=== PATIENT | male | born 1995 | race Caucasian/White ===

== ENCOUNTER 2016-07-15 11:20 | Emergency (ER) | payer OTHER ==
[2016-07-15] MEDS ORDERED: Ondansetron ODT TAB* 4 MG PO ONE (12:58)
--- NOTE | 2016-07-15 13:03 | UC ---
UC General HPI - HPI Summary HPI Summary: nausea, body aches, chills, fever, sore throat, wheezing and SOB on exertion. hx of asthma, takes albuterol as needed. - History of Current Complaint Chief Complaint: UCRespiratory Stated Complaint: FLU SXS Time Seen by Provider: 07/15/16 12:53 Hx Obtained From: Patient Onset/Duration: Sudden Onset, Lasting Days Timing: Constant Onset Severity: Moderate Current Severity: Moderate Pain Intensity: 6 Associated Signs & Symptoms: Positive: Cough, Dizziness, Fever, Headache, Nausea , SOB, Wheezing - Allergy/Home Medications Allergies/Adverse Reactions: Allergies Allergy/AdvReac Type Severity Reaction Status Date / Time Bee Venom Allergy Anaphylatic Verified 07/15/16 12:45 Shock Latex Allergy Rash Verified 07/15/16 12:45 Home Medications: Home Medications Albuterol HFA INHALER* [Ventolin HFA Inhaler*] 1 - 2 puff INH Q4H PRN 07/15/16 [ History Confirmed 07/15/16] Escitalopram (NF) [Lexapro (NF)] 20 mg PO DAILY 07/15/16 [History Confirmed 06/30] Fluticasone-Salmeterol 250-50* [Advair Diskus 250-50*] 1 puff INH BID 07/15/16 [ History Confirmed 07/15/16] Montelukast Sodium TAB* [Singulair TAB*] 10 mg PO DAILY 07/15/16 [History Confirmed 07/15/16] [id number] [Mucinex Fast-Max Day/Nigh] 1 cap PO Q6H PRN 06/30 [History Confirmed 07/15/16] PMH/Surg Hx/FS Hx/Imm Hx Previously Healthy: Yes Respiratory History Of: Reports: Asthma - Surgical History Surgical History: None - Family History Known Family History: Positive: Respiratory Disease - Social History Alcohol Use: Weekly Substance Use Type: Marijuana Smoking Status (MU): Never Smoked Tobacco - Immunization History Most Recent Influenza Vaccination: Not the Season Review of Systems Constitutional: Fever, Chills Skin: Negative, Bruising Eyes: Negative ENT: Sore Throat, Nasal Discharge Respiratory: Shortness Of Breath, Cough Cardiovascular: Negative Gastrointestinal: Other - nausea Genitourinary: Negative Motor: Negative Neurovascular: Negative Musculoskeletal: Myalgia Neurological: Headache Psychological: Negative All Other Systems Reviewed And Are Negative: Yes Physical Exam Triage Information Reviewed: Yes Appearance: Well-Nourished, Ill-Appearing, Pain Distress Vital Signs: Initial Vital Signs Temp 99.1 F 07/15/16 12:43 Pulse 106 07/15/16 12:43 Resp 16 07/15/16 12:43 BP 130/68 07/15/16 12:43 Pulse Ox 99 07/15/16 12:43 Vital Signs Reviewed: Yes Eye Exam: Normal Eyes: Positive: Conjunctiva Clear ENT: Positive: Pharyngeal erythema, TM red, Tonsillar swelling, Muffled/hoarse voice Dental Exam: Normal Neck exam: Normal Neck: Positive: Supple, Nontender, No Lymphadenopathy Respiratory Exam: Normal Respiratory: Positive: Chest non-tender, No respiratory distress, No accessory muscle use, Wheezing, Inspiration Cardiovascular Exam: Normal Cardiovascular: Positive: RRR, No Murmur, Pulses Normal Abdominal Exam: Normal Abdomen Description: Positive: Nontender, No Organomegaly, Soft Bowel Sounds: Positive: Present Musculoskeletal Exam: Normal Musculoskeletal: Positive: Strength Intact, ROM Intact, No Edema Neurological Exam: Normal Neurological: Positive: Alert, Muscle Tone Normal Psychological Exam: Normal Skin Exam: Normal Course/Dx - Course Course Of Treatment: hx obtianed, exam performed, medications reviewed, rapid flu obtained and negative. medications prescribed. - Differential Dx - Multi-Symptom Provider Diagnoses: nausea. myalgia. fever. wheezing Discharge - Discharge Plan Condition: Stable Disposition: HOME Prescriptions: Promethazine TAB* [Phenergan TAB*] 25 mg PO Q8H PRN #12 tab PRN Reason: Nausea Patient Education Materials: Wheezing (ED) Additional Instructions: Rest and increase your fluid intake. take the medication as prescribed. COntinue using your albuterol up to every 4 hours as needed for wheezing and SOB.
[2016-07-15 13:16] VITALS: BP 130/68
== END 2016-07-15 13:29 | disposition home or self-care (01) ==
LOC: UCCORT 11:20
DX: R11.0 Nausea (principal); R50.9 Fever, unspecified; R06.2 Wheezing; M79.1 Myalgia; R06.02 Shortness of breath; J45.909 Unspecified asthma, uncomplicated; Z91.030 Bee allergy status; Z91.040 Latex allergy status
CPT/HCPCS: 87502; 99202; A9270-GY; G0463

== ENCOUNTER 2016-09-17 11:24 | Emergency (ER) | payer OTHER ==
[2016-09-17 12:27] VITALS: BP 110/75
--- NOTE | 2016-09-17 13:56 | UC ---
Throat Pain/Nasal Maxx HPI - HPI Summary HPI Summary: PATIENT ARRIVES WITH ROOMMATE - BOTH C/O SORE THROAT, COUGH, BODY ACHES, SWOLLEN GLANDS, WHITE TONGUE AND FEVER X 2 DAYS HE FEELS IS BECOMING WORSE. PATIENT IS OTHERWISE HEALTHY, DOSE NOT SMOKE AND HAS BEEN EATING AND DRINKING OK. HE DENIES FLU SHOT. THROAT IS BOTHERING HIM THE MOST TODAY AND FEELS SHARP. NOTHING MAKES THE PAIN BETTER OR WORSE. HE HAS TRIED OTC TYLENOL AND TEA WITHOUT RELIEF. HE ALSO NOTES TO SOME SOB WITH COUGH. HE HAS A HISTORY OF ASTHMA AND TAKES VENTOLIN AND ALBUTEROL. - History of Current Complaint Stated Complaint: SORE THROAT,FEVER,COUGH Time Seen by Provider: 09/17/16 12:50 Hx Obtained From: Patient Onset/Duration: Sudden Onset Severity: Moderate Pain Intensity: 5 Pain Scale Used: 0-10 Numeric Cough: Nonproductive Associated Signs & Symptoms: Positive: Dysphagia, Hoarseness, Sinus Discomfort, Fever - Epiglottits Risk Factors Epiglottis Risk Factors: Negative - Allergies/Home Medications Allergies/Adverse Reactions: Allergies Allergy/AdvReac Type Severity Reaction Status Date / Time Bee Venom Allergy Anaphylatic Verified 09/17/16 12:27 Shock Latex Allergy Rash Verified 09/17/16 12:27 Home Medications: Home Medications clonazePAM TAB(*) [KlonoPIN TAB(*)] 1 mg PO TID PRN 09/17/16 [History Confirmed 09/17/16] PMH/Surg Hx/FS Hx/Imm Hx Previously Healthy: Yes Respiratory History Of: Reports: Asthma - Surgical History Surgical History: None - Family History Known Family History: Positive: Respiratory Disease - Social History Occupation: Student Lives: With Family Alcohol Use: Occasionally Substance Use Type: Marijuana Substance Use Comment - Amount & Last Used: 3 times a week Smoking Status (MU): Never Smoked Tobacco - Immunization History Most Recent Influenza Vaccination: Not the 2016/2016 Season Review of Systems Constitutional: Fever, Chills, Fatigue Skin: Negative ENT: Sore Throat, Ear Ache Respiratory: Shortness Of Breath, Cough Cardiovascular: Negative Gastrointestinal: Negative Genitourinary: Negative Motor: Weakness Neurovascular: Negative Musculoskeletal: Myalgia Neurological: Headache, Weakness Psychological: Negative All Other Systems Reviewed And Are Negative: Yes Physical Exam Triage Information Reviewed: Yes Appearance: Well-Appearing, Well-Nourished Vital Signs: Initial Vital Signs Temp 97.5 F 04/06/17 12:21 Pulse 85 09/17/16 12:21 Resp 17 09/17/16 12:21 BP 110/75 09/17/16 12:21 Pulse Ox 98 09/17/16 12:21 Vital Signs Reviewed: Yes Eye Exam: Normal Eyes: Positive: Conjunctiva Clear ENT: Positive: Pharyngeal erythema, TMs normal, Tonsillar swelling, Tonsillar exudate Dental Exam: Normal Neck exam: Normal Neck: Positive: Supple, No Lymphadenopathy Respiratory Exam: Normal Respiratory: Positive: Chest non-tender, Lungs clear, Normal breath sounds Cardiovascular Exam: Normal Cardiovascular: Positive: RRR Musculoskeletal Exam: Normal Musculoskeletal: Positive: Strength Intact, ROM Intact Neurological Exam: Normal Neurological: Positive: Alert Psychological Exam: Normal Psychological: Positive: Normal Response To Family Skin Exam: Normal Throat Pain/Nasal Course/Dx - Course Course Of Treatment: STREP POSITIVE. AUGMENTIN RX SENT. ENCOURAGED TYLENOL FOR TEMPS > 100.5. PREDNISONE GIVEN 5 DAY SHORT COURSE D/T SOB AND DIFFICULTY BREATHING WITH COUGHING. PATIENT AGREES TO FOLLOW UP WITH PCP. - Differential Dx/Diagnosis Differential Diagnosis/HQI/PQRI: Influenza, Otitis Media, Pharyngitis, Tonsillitis, URI Provider Diagnoses: STREP THROAT Discharge - Discharge Plan Condition: Stable Disposition: HOME Prescriptions: Amoxicillin/Clavulanate TAB* [Augmentin TAB 875*] 875 mg PO BID #20 tab predniSONE TAB* [Deltasone TAB*] 50 mg PO DAILY #5 tab Patient Education Materials: Strep Throat (ED) Forms: *School Release Referrals: Non Staff,Doctor [Primary Care Provider] - Additional Instructions: You will need antibiotic medicine to treat your strep throat. Please take the antibiotic as directed. You should feel better within 2 to 3 days after you start antibiotics. You may return to work or school 24 hours after you start antibiotics. If you have any questions about your medications, please do no hesitate to call or talk with your pharmacist. How can I manage my symptoms? Use lozenges, ice, soft foods, or popsicles to soothe your throat. Drink juice, milk shakes, or soup if your throat is too sore to eat solid food. Drinking liquids can also help prevent dehydration. Gargle with salt water. Mix teaspoon salt in a 1 cup of warm water and gargle. This may help reduce swelling in your throat. Do not smoke. Nicotine and other chemicals in cigarettes and cigars can cause lung damage and make your symptoms worse. Ask your healthcare provider for information if you currently smoke and need help to quit. E-cigarettes or smokeless tobacco still contain nicotine. Talk to your healthcare provider before you use these products. How do I prevent the spread of strep throat? Wash your hands often. Use soap and water. Wash your hands after you use the bathroom, change a child's diapers, or sneeze. Wash your hands before you prepare or eat food. Do not share food or drinks. Replace your toothbrush after you have taken antibiotics for 24 hours. Medication: Augmentin 875-mg tablet of AUGMENTIN every 12 hours FOR 7 DAYS. To minimize the potential for gastrointestinal intolerance, AUGMENTIN should be taken at the start of a meal. If you have any questions about your medication, please contact us or ask your pharmacist.
== END 2016-09-17 13:12 | disposition home or self-care (01) ==
LOC: UCCORT 11:24
DX: J02.0 Streptococcal pharyngitis (principal); J45.909 Unspecified asthma, uncomplicated; F12.90 Cannabis use, unspecified, uncomplicated
CPT/HCPCS: 87502; 87651; 99212; G0463

== ENCOUNTER 2017-02-21 13:10 | Emergency (ER) | payer OTHER ==
[2017-02-21 14:16] VITALS: BP 103/67
--- NOTE | 2017-02-21 14:34 | UC ---
FLU HPI - HPI Summary HPI Summary: Pt presents with c/o generalized malaise, sore throat, chills cough X 3 days. Today pt woke this morning feeling worse then initial onset of symptoms. - History of Current Complaint Chief Complaint: UCGeneralIllness Stated Complaint: ACHY,FEVER,CHILLS Time Seen by Provider: 02/21/17 14:22 Hx Obtained From: Patient Onset/Duration: Gradual Onset, Lasting Days - 3, Worse Since - onset Severity Currently: Mild Severity Initially: Moderate Associated Signs & Symptoms: Positive: Myalgia, Cough, Sore Throat - Risk Factors Influenza Risk Factors: Negative - Allergy/Home Medications Allergies/Adverse Reactions: Allergies Allergy/AdvReac Type Severity Reaction Status Date / Time Bee Venom Allergy Anaphylatic Verified 02/21/17 14:09 Shock Latex Allergy Rash Verified 02/21/17 14:09 Home Medications: Home Medications Cetirizine* [ZyrTEC 10 MG TAB*] 10 mg PO DAILY 02/21/17 [History Confirmed 02/21] Fluticasone NASAL SPRAY 50MCG* [Flonase NASAL SPRAY 50MCG*] 2 spray BOTH NARES DAILY 02/21/17 [History Confirmed 02/21/17] PMH/Surg Hx/FS Hx/Imm Hx Previously Healthy: Yes Respiratory History: Asthma, Other - seasonal allergies Other Respiratory History: seasonal allergies - Surgical History Surgical History: None - Family History Known Family History: Positive: Respiratory Disease - Social History Occupation: Student - [employer] Alcohol Use: None Substance Use Type: None Substance Use Comment - Amount & Last Used: 3 times a week Smoking Status (MU): Never Smoked Tobacco Have You Smoked in the Last Year: No - Immunization History Most Recent Influenza Vaccination: Not the 2015/2016 Season Review of Systems Constitutional: Chills, Fatigue Skin: Negative Eyes: Negative ENT: Sore Throat, Other - nasal congestion Respiratory: Shortness Of Breath - using rescue inhaler, Cough Cardiovascular: Negative Gastrointestinal: Negative Genitourinary: Negative Motor: Negative Neurovascular: Negative Musculoskeletal: Myalgia Neurological: Negative Psychological: Negative Is Patient Immunocompromised?: No All Other Systems Reviewed And Are Negative: Yes Physical Exam Triage Information Reviewed: Yes Appearance: Well-Appearing Vital Signs: Initial Vital Signs Temp 98.1 F 02/21/17 14:11 Pulse 73 02/21/17 14:11 Resp 16 02/21/17 14:11 BP 103/67 02/21/17 14:11 Pulse Ox 99 02/21/17 14:11 Eye Exam: Normal ENT Exam: Other ENT: Positive: Nasal congestion, Tonsillar swelling Neck exam: Normal Respiratory Exam: Normal Cardiovascular Exam: Normal Musculoskeletal Exam: Normal Neurological Exam: Normal Psychological Exam: Normal Skin Exam: Normal Flu Course/Dx - Differential Dx/Diagnosis Differential Diagnosis/HQI/PQRI: Influenza, Upper Respiratory Infection, Other - strep throat Provider Diagnoses: viral syndrome Discharge - Discharge Plan Condition: Stable Disposition: HOME Patient Education Materials: Viral Syndrome (ED) Forms: *School Release Referrals: [facility] – [place] PHYSICIAN REFERRAL [Outside] Non Staff,Doctor [Primary Care Provider] - Additional Instructions: Please follow up with your PCP or return to clinic as needed.
== END 2017-02-21 15:03 | disposition home or self-care (01) ==
LOC: UCCORT 13:10
DX: B34.9 Viral infection, unspecified (principal); J45.909 Unspecified asthma, uncomplicated
CPT/HCPCS: 87502; 87651; 99211; G0463

== ENCOUNTER 2017-09-19 14:25 | Emergency (ER) | payer OTHER ==
[2017-09-19 14:55] VITALS: BP 117/49
[2017-09-19] MEDS ORDERED: Ibuprofen TAB* 600 MG PO ONE (15:01)
--- NOTE | 2017-09-19 15:11 | UC ---
UC General HPI - HPI Summary HPI Summary: pt is c/o 3-4 days headache, head congestion, sore throat, body aches and subjective fever. figured was just a cold but now ongoing. - History of Current Complaint Chief Complaint: UCGeneralIllness Stated Complaint: RESPIRATORY Time Seen by Provider: 09/19/17 14:53 Hx Obtained From: Patient Timing: Constant Pain Intensity: 5 Aggravating: nothing Alleviating: nothing Associated Signs & Symptoms: Positive: Cough, Diaphoresis, Fever, Headache. Negative: Abdominal Pain, Chest Pain, Diarrhea, Dysuria, SOB - Allergy/Home Medications Allergies/Adverse Reactions: Allergies Allergy/AdvReac Type Severity Reaction Status Date / Time bee venom protein (honey bee) Allergy Anaphylatic Verified 09/19/17 15:13 Shock latex Allergy Rash Verified 09/19/17 15:13 spider venom Allergy Anaphylatic Verified 09/19/17 15:13 Shock PMH/Surg Hx/FS Hx/Imm Hx Respiratory History: Asthma - Surgical History Surgical History: None - Family History Known Family History: Positive: Respiratory Disease - Social History Occupation: Student Lives: Dormitory/Roommates Alcohol Use: Occasionally Substance Use Type: Marijuana Substance Use Comment - Amount & Last Used: 3 times a week/varies Smoking Status (MU): Never Smoked Tobacco Have You Smoked in the Last Year: No - Immunization History Most Recent Influenza Vaccination: Not the 2015/2016 Season Vaccination Up to Date: Yes Review of Systems Constitutional: Fever Skin: Negative Eyes: Negative ENT: Sore Throat, Sinus Congestion Respiratory: Cough Cardiovascular: Negative Gastrointestinal: Negative Genitourinary: Negative Motor: Negative Neurovascular: Negative Musculoskeletal: Myalgia Neurological: Negative Psychological: Negative Is Patient Immunocompromised?: No All Other Systems Reviewed And Are Negative: Yes Physical Exam Triage Information Reviewed: Yes Appearance: Well-Appearing Vital Signs: Initial Vital Signs Temp 98.8 F 09/19/17 14:49 Pulse 68 09/19/17 14:49 Resp 18 09/19/17 14:49 BP 117/49 09/19/17 14:49 Pulse Ox 100 09/19/17 14:49 Vital Signs Reviewed: Yes Eyes: Positive: Conjunctiva Clear ENT: Positive: Pharyngeal erythema, TMs normal, Uvula midline. Negative: Nasal drainage, Tonsillar swelling, Tonsillar exudate, Trismus, Muffled voice, Hoarse voice Neck: Positive: Supple, Nontender, No Lymphadenopathy Respiratory: Positive: Lungs clear, Normal breath sounds Cardiovascular: Positive: RRR, No Murmur Abdomen Description: Positive: Nontender, No Organomegaly, Soft Bowel Sounds: Positive: Present Musculoskeletal: Positive: ROM Intact Neurological: Positive: Alert Psychological: Positive: Age Appropriate Behavior Skin Exam: Normal Diagnostics - Laboratory Diagnostic Studies Completed/Ordered: RAPID STREP=NEG Course/Dx - Course Course Of Treatment: non toxic, rapid strep is negative. influenza still in community and this is c/w KAMALJIT. T xsupportaive based on duration. - Differential Dx - Multi-Symptom Provider Diagnoses: Influenza like illness Discharge - Sign-Out/Discharge Documenting (check all that apply): Discharge - Discharge Plan Condition: Stable Disposition: HOME Patient Education Materials: Influenza (DC) Forms: *School Release Additional Instructions: FOLLOW UP [facility] IN 5-7 DAYS FOR A RECHECK OR SOONER IF WORSE. - Billing Disposition and Condition Condition: STABLE Disposition: HOME
== END 2017-09-19 15:37 | disposition home or self-care (01) ==
LOC: UCCORT 14:25
DX: J11.1 Influenza due to unidentified influenza virus with other respiratory manifestations (principal)
CPT/HCPCS: 87651; 99212; A9270-GY; G0463